=== PATIENT | male | born 1995 | race Caucasian/White ===

== ENCOUNTER 2020-10-09 15:28 | Outpatient (REF) | payer OTHER, SELFPAY ==
[2020-10-09 17:45] LABS: MANUAL DIFF FLAG NO
[2020-10-09 17:48] LABS: Basophils Percent Auto 0.4 % (0-2); Eosinophils Absolute Auto 0.2 X10*3/uL (0.0-0.4); Eosinophils Percent Auto 2.7 % (0-4); Hematocrit 44.5 % (42-52); Hemoglobin 14.9 g/dl (14.0-18.0); Imm Gran Abs Auto 0.01 X10*3/uL (0.00-0.03); Imm Gran Pct Auto 0.1 % (0.0-0.4); Lymphocytes Absolute Auto 1.8 X10*3/uL (1.2-4.9); Lymphocytes Percent Auto 25.1 % (20-40); Mean Corpuscular HGB Conc 33.5 g/dl (31.0-36.0); Mean Corpuscular Hemoglobin 28.9 pg (27.0-33.0); Mean Corpuscular Volume 86.2 fL (80-98); Mean Platelet Volume 11.6 fL (9.4-12.4); Monocytes Absolute Auto 0.7 X10*3/uL (0.1-1.2); Monocytes Percent Auto 9.3 % (2-11); Neutrophils Absolute Auto 4.4 X10*3/uL (2.0-8.3); Neutrophils Percent Auto 62.4 % (45-73); Platelet Count 212 X10*3/uL (160-400); Red Blood Count 5.16 X10*6/uL (4.60-5.80); Red Cell Distribution Width 11.6 % (11.0-16.0); White Blood Count 7.1 X10*3/uL (4.8-10.8)
[2020-10-09 18:16] LABS: Alanine Aminotransferase 19 U/L (0-40); Albumin Level 4.3 g/dL (3.5-5.0); Alkaline Phosphatase 89 U/L (39-117); Anion Gap 12 (12-20); Aspartate Amino Transferase 22 U/L (5-37); Bilirubin Total 0.3 mg/dL (0.0-1.0); Blood Urea Nitrogen 14 mg/dL (9-16); C Reactive Protein 0.68 mg/dL (< or = 0.50); Carbon Dioxide 25 mmol/L (22-29); Chloride 104 mmol/L (96-108); Estimated Glomerular Filt Rate > 60; Glucose Random 81 mg/dL (60-115); Iron 74 mcg/dL (45-160); Percent Iron Saturation 27 % (15-50); Potassium 4.4 mmol/L (3.3-5.1); Sodium 137 mmol/L (135-145); Total Iron Binding Capacity 274 mcg/dL (228-428); Total Protein 7.6 g/dL (6.5-8.0); Unsaturated Iron Binding 200 ug/dL
[2020-10-09 18:32] LABS: Erythrocyte Sedimentation Rate 9 MM/HR (0-15)
[2020-10-09 18:35] LABS: Ferritin 249 ng/mL (20-250)
== END 2020-10-09 15:29 | disposition home or self-care (01) ==
LOC: HO.MANLDS 15:28
PROVIDERS: PCP Internal Medicine; Visit Provider Physician Assistant
DX: K92.1 Melena (principal)
CPT/HCPCS: 36415; 80053; 82728; 83540; 85025; 85652; 86140

== ENCOUNTER 2020-10-16 07:22 | Outpatient (REF) | payer OTHER, SELFPAY ==
[2020-10-16 07:47] LABS: OBS1 POS (NEG); OBS2 NEG (NEG)
[2020-10-16 07:48] LABS: OBS Int Ctl Valid YES; OBS3 POS (NEG)
== END 2020-10-16 07:23 | disposition home or self-care (01) ==
LOC: HO.LNP 07:22
PROVIDERS: Visit Provider Physician Assistant
DX: K92.1 Melena (principal)
CPT/HCPCS: 82270

== ENCOUNTER 2020-11-18 09:59 | Day surgery (SDC) | payer OTHER, SELFPAY ==
--- NOTE | 2020-11-17 09:52 | P.CONAN_ITS ---
Documented by User: Lena Bustos 11/17/20 09:53 HPI - Anesthesia Eval Consult details Narrative: 25yo M for Colonoscopy [facility] Past Medical History Medical History Sleep apnea Social History Social History Smoking Status: Never smoker Use of substances other than those prescribed or required for medical reasons: No Have you been hit, kicked, punched, or otherwise hurt by someone within the past year? If so, by whom?: No Advance Directives: No Advance Directives Information Provided: Yes Advance Directives on File: No Meds Allergies Allergy/AdvReac Type Severity Reaction Status Date / Time No Known Allergies Allergy Verified 11/17/20 09:01 Exam Exam Date and Time: November 17, 2020 0952 Pertinent Lab Results Pertinent Lab Results: Laboratory Tests 10/09/20 10/09/20 15:35 15:35 WBC 7.1 Hgb 14.9 Hct 44.5 Plt Count 212 Sodium 137 Potassium 4.4 Chloride 104 Carbon Dioxide 25 BUN 14 Creatinine 0.79 Assessment and Plan Assessment Anesthesia Assessment: Chart Reviewed Documented by User: Nicole Melissa 11/18/20 11:42 [facility] Past Medical History Medical History Sleep apnea Social History Social History Smoking Status: Never smoker Use of substances other than those prescribed or required for medical reasons: No Have you been hit, kicked, punched, or otherwise hurt by someone within the past year? If so, by whom?: No Advance Directives: No Advance Directives Information Provided: Yes Advance Directives on File: No Meds Allergies Allergy/AdvReac Type Severity Reaction Status Date / Time No Known Allergies Allergy Verified 11/17/20 09:01 Exam Airway Mallampati Class: II TM Dist: >3cm Neck ROM: Full Assessment and Plan Assessment Anesthesia Assessment: Anesthesia Plan Discussed and Chart Reviewed Final Anesthetic Review NPO: Yes ASA Class: II Final Preanesthetic Review: No Changes in Pt Med Stat, Meds/Allgs Chart Reviewed, Consent Obtained/Reviewed and Anes Risks/Benef Reviewed Patient Risk: Low Procedure Risk: Low Assessment/Block/Sedation in SS: Assess/Block/Sedation-SS Anesthetic Plan Anesthetic Plan: MAC: Disposition: Standard PACU
[2020-11-18 09:59] VITALS: BMI 38.2
[2020-11-18 10:08] VITALS: BP 151/84; PULSE 104; RESP 20; TEMP 36.7; O2SAT 94
[2020-11-18 12:23] VITALS: BP 126/78; PULSE 89; RESP 16; TEMP 37.1; O2SAT 99
--- NOTE | 2020-11-18 12:27 | PM.OP ---
Brief Operative Note Date of Service: 11/18/20 Pre-op diagnosis: Rectal bleeding Post-op diagnosis: other (Colon polyps) Procedure: Colonoscopy to cecum and TI with biopsy and removal of colon polyp(Transverse colon), and snare polypectomy(at 30cm) with placement of 2 Resolution clips and marking with submucosal ink. Surgeon: Rolando Johnson Anesthesia: MAC Estimated blood loss (mL): 4.0 Pathology: other (A. Transverse colon polyp B. Polyp at 30cm) Condition: stable Disposition: PACU
[2020-11-18 12:38] VITALS: BP 143/96; PULSE 86; RESP 16; TEMP 37.1; O2SAT 98
--- NOTE | 2020-11-18 13:02 | OP_ITS ---
SURGEON: Rolando Johnson MD INDICATIONS: The patient presents for evaluation of persistent hematochezia and heme-positive stool. Full consent has been obtained from him for this, including risks of bleeding and perforation. PREOPERATIVE DIAGNOSIS: Rectal bleeding. POSTOPERATIVE DIAGNOSIS: PROCEDURE PERFORMED: Colonoscopy to the cecum and terminal ileum with biopsy and removal of polyp, snare polypectomy, placement of resolution clips x2 on the polypectomy site at 30 cm, and marking with submucosal ink at the polypectomy site at 30 cm. ESTIMATED BLOOD LOSS: COMPLICATIONS: ANESTHESIA: Monitored anesthesia care. ASSISTANTS: SPECIMENS: POSTOPERATIVE DIAGNOSES: Rectal bleeding, colon polyps. DESCRIPTION OF PROCEDURE: The patient was placed in the left lateral decubitus position. The digital rectal exam revealed no abnormalities. The [employer] video pediatric colonoscope was entered into the rectum and advanced easily to the cecum. Once in the cecum, I did identify normal-appearing cecal pouch with appendiceal orifice and a normal-appearing ileocecal valve. The terminal ileum was cannulated and appeared normal. Scope was withdrawn back in the colon. The entire cecum and ileocecal valve appeared normal. The scope was then slowly withdrawn assessing all mucosal surfaces carefully. Preparation was excellent. In the transverse colon, was a flat, but slightly raised, approximately 4 mm polyp, which was biopsied and completely removed with cold biopsy forceps. At 30 cm, was a large approximately 1.8 to 2.0 cm polyp on a long and thick stalk. It appeared to be grossly adenomatous with some associated inflammation and friability as well. Given the length and size of the stalk, I opted to place a single clip at the very base of the stalk prior to the polypectomy. This led to good congestion and development of a dusky color in the stalk above the clip. I then used a snare to remove the polyp and the stalk above the clip. There was no sign of any bleeding nor any residual polyp tissue. The polyp was then retrieved with the retrieval net. The scope was readvanced back to the polypectomy site. There was no bleeding. I then placed a submucosal ink lanie just proximal to the polypectomy site and placed 2 ink armstrong distal and adjacent to the polypectomy site as well. There was still a small amount of stalk above the previously placed clip and I placed a single resolution clip on that area as well. The area was observed and irrigated and there was no bleeding. The colon distal to the polypectomy site, including the rectum appeared normal. The scope was retroflexed visualizing normal distal rectal mucosa. There were no appreciable hemorrhoids. The scope was straightened out and withdrawn from the patient. He tolerated the procedure well and was returned to the recovery area in stable condition. IMPRESSION: Colon polyps. PLAN: The results of the pathology will be checked. Hopefully, there is no sign of any malignancy in the larger colon polyp, I would then recommend a repeat colonoscopy within 1 year. He was advised to stay off all aspirin and NSAIDs for at least 1 week. He will be seen in followup to review this as well. This has been discussed with his family. MD CAIN Monterroso/DMITRI / [id number]
== END 2020-11-18 13:08 | disposition home or self-care (01) ==
PROVIDERS: PCP Internal Medicine; Visit Provider Internal Medicine
PROC: 0DJD8ZZ Inspection of Lower Intestinal Tract, Via Natural or Artificial Opening Endoscopic (ICD-10-PCS; CPT 45378; principal; 2020-11-18 11:00)
DX: K62.5 Hemorrhage of anus and rectum (principal); R19.5 Other fecal abnormalities; D12.3 Benign neoplasm of transverse colon; D12.5 Benign neoplasm of sigmoid colon; G47.33 Obstructive sleep apnea (adult) (pediatric); Z99.89 Dependence on other enabling machines and devices
CPT/HCPCS: 45385; 45380; 45381; 88305; J3010

== ENCOUNTER 2021-03-09 16:13 | Outpatient (REF) | payer OTHER, SELFPAY ==
--- NOTE | ~2021-03-09 | XR_ITS ---
EXAMINATION: XR CHEST CLINICAL INFORMATION: Chest pain COMPARISON: None TECHNIQUE: 2 views of the chest were obtained. FINDINGS: No significant abnormality is noted involving the heart, lungs, mediastinum, bony thorax or soft tissues. XR/XR chest 2V IMPRESSION: Unremarkable examination.
== END 2021-03-09 16:14 | disposition home or self-care (01) ==
LOC: HO.XRAY 16:13
PROVIDERS: PCP Internal Medicine; Visit Provider Physician Assistant
DX: R07.89 Other chest pain (principal)
CPT/HCPCS: 71046

== ENCOUNTER → 2021-04-15 10:31 | Outpatient (REF) | payer OTHER, SELFPAY ==
--- NOTE | 2021-04-15 10:33 | CA_ITS ---
Acquisition Time: 2021-04-15 10:40:32 Total Exercise Time: 00:05:00 Test Indications: Chest Pain Medications: PROPRANOLOL Protocol: KIKO Max HR: 176 BPM 89% of Pred: 196 BPM Max BP: 160/080 mmHG Max Work Load: 7.0 METS Exercise sress test with exercise 5 min of Kiko protocol, with request to stop due to leg fatigue and mild to mod sob, No chest discomfort, without arrythmia, with normotensive and brisk chronotropic response to exercise, without EKG changes meeting criteria for ischemia. Test reviewed with Dr Yeh. Referred By: Kim Allen Overread By: ELLIOT PARK
== END ==
LOC: HO.CARD 10:31
PROVIDERS: PCP Physician Assistant; Visit Provider Physician Assistant
DX: R07.89 Other chest pain (principal)
CPT/HCPCS: 93017

== ENCOUNTER → 2021-05-11 08:28 | Outpatient (REF) | payer OTHER, SELFPAY ==
--- NOTE | 2021-05-11 08:30 | CA_ITS ---
Transthoracic Echocardiogram Patient (Last, First, Middle): Pipe Manuel G Gender: Male Date of : 1995 Age: 25 Procedure Date: 05/11/2021 Procedure Type: Transthoracic Echocardiogram Location: OP Height: 172.72 cm Weight: 136.08 kg BSA: 2.43 m2 Heart Rate: bpm BP: 130 / 80 mmHg Tile Ditcher: Referring MD: Kim NASSAR Symptoms: ATYPICAL CHEST PAIN R07.89 Study Quality: Fair ECG Rhythm: Sinus Conclusions: - The left ventricular systolic function is normal. The visually estimated ejection fraction is between 60-65%. - There is mildly increased left ventricular wall thickness. - No obvious valvular pathology seen on this study. Findings Left Ventricle Normal left ventricular cavity size. There is mildly increased left ventricular wall thickness. The left ventricular systolic function is normal. The visually estimated ejection fraction is between 60-65%. There is no evidence of regional wall motion abnormalities. Diastolic function is normal for age. Right Ventricle Normal right ventricular cavity size and systolic function. Atria Both atria are normal in size. Aortic Valve There is a normal trileaflet aortic valve. There is no aortic valve stenosis. There is no aortic valve regurgitation. Mitral Valve The mitral valve appears normal. There is no mitral valve regurgitation. There is no mitral valve stenosis. Pulmonic Valve The pulmonic valve was not well visualized. Tricuspid Valve Normal tricuspid valve structure. There is trace tricuspid valve regurgitation. The pulmonary artery systolic pressure is normal. Great Vessels The asc aorta is normal in size. Venous The inferior vena cava is normal in size and collapses greater than 50% with inspiration. Pericardium/Pleural There is no evidence of pericardial effusion. Prior Study Comparison No prior study available for comparison. Recommendations, Care & Conclusions No obvious valvular pathology seen on this study. Measurements 2D Linear Measurements IVSd: 1.21 0.6-0.9/0.6-1.0 cm LVIDd: 4.62 3.9-5.3/4.2-5.9 cm LVIDd Index: 1.90 2.4-3.2/2.2-3.1 cm/m2 LVIDs: 2.84 2.0-3.6 cm LVPWd: 1.24 0.7-1.1 cm Ao Root: 3.10 2.1-3.5 cm LA Diam: 4.10 2.7-3.8/3.0-4.0 cm LAIDs Index: 1.69 1.5-2.3 cm/m2 LV Mass: 264.97 67-162/88-224 g LV Mass Index: 109.04 43-95/49-115 g/m2 LVOT Diam: 2.30 3.0+(-)1.3 cm Mitral Valve MV Pk E: 0.82 MV PK A: 0.67 MV Decel Time: 131.00 E/A: 1.20 E'Lateral: 12.50 E'Medial: 10.30 E/E' Med: 7.90 E/E' Lat: 6.50 PHT: 38.00 MVA PHT: 5.79 Decel Lipscomb: 6.23 Aortic Valve AoV Pk Amando: 1.17 AoV Mn Amando: 0.76 AoV VTI: 0.24 AoV Pk Grad: 5.00 Aov Mn Grad: 3.00 JERROD Cont.VTI: 2.50 LVOT LVOT Pk Amando: 0.71 LVOT Mn Amando: 0.51 LVOT VTI: 0.15 LVOT Pk Grad: 2.00 LVOT Mn Grad: 1.00 LVOT Diam: 2.30 LVOT Area: 4.15 Diastolic Function MV Pk E: 0.82 MV Pk A: 0.67 E/A: 1.20 E'Medial: 10.30 E/E' Med: 7.90 E' Laterial: 12.50 E/E' Lat: 6.50 Right Ventricle TAPSE (mm): 25.00 Tricuspid Valve TR Pk Amando: 2.40 TR Pk Grad: 23.00 Great Vessels Aorta Ao Root-2D: 3.10 2.0-3.7 cm Ao Asc: 3.10 2.1-3.4 cm Pulmonary Valve PV Pk Amando: 1.07 Peak PV Grad: 5.00 Updated in Other Vendor System with Status of Final Anjel Soto MD electronically signed on 05/11/2021 12:02:21 PM with status of Final
== END ==
LOC: HO.CARD 08:28
PROVIDERS: Visit Provider Physician Assistant
DX: R07.89 Other chest pain (principal)
CPT/HCPCS: 93306

== ENCOUNTER 2022-02-23 07:18 | Day surgery (SDC) | payer OTHER, SELFPAY ==
[2022-02-16 14:15] VITALS: BMI 44.1
--- NOTE | 2022-02-22 08:30 | HO.ANESPROP2 ---
Documented by User: Lena Bustos NP 02/22/22 08:31 HPI - Anesthesia Eval Consult details Narrative: 26yo M for Colonoscopy [facility] Past Medical History Medical History Sleep apnea Surgical History Surgical History H/O colonoscopy Social History Social History Patient Tobacco Use Status: Never used Tobacco Use of substances other than those prescribed or required for medical reasons: No Are you DNR?: No Advance Directives: No Advance Directives Information Provided: Yes (brochure mailed) Advance Directives on File: No Recently lost weight without trying: No Eating poorly because of decreased appetite: No Nutrition Risks: No Nutritional Risk Meds Allergies Allergy/AdvReac Type Severity Reaction Status Date / Time No Known Allergies Allergy Verified 11/17/20 09:01 Home Medications Medication Instructions Recorded Confirmed Last Taken Type No Known Home Meds 02/16/22 02/16/22 Unknown History Exam Exam Date and Time: February 22, 2022 0830 Height,Weight and Vital Signs: Height 5 ft 8 in Weight 131.542 kg Narrative Narrative: ECHO 05/2021 Conclusions: - The left ventricular systolic function is normal.? The visually estimated ejection fraction is between 60-65%. ? - There is mildly increased left ventricular wall thickness. ? ? - No obvious valvular pathology seen on this study.? ? ? Exercise Stress 04/2021 Protocol: BARTOLO ? Max HR: 176 BPM? 89% of? Pred: 196 BPM Max BP: 160/080 mmHG Max Work Load: 7.0 METS ? Exercise sress test with exercise 5 min of Bartolo protocol, with request to stop ?due to leg fatigue and mild to mod sob, No chest discomfort, without arrythmia, ?with normotensive and brisk chronotropic response to exercise, without EKG ?changes meeting criteria for ischemia. Test reviewed with Dr Yeh. Assessment and Plan Assessment Anesthesia Assessment: Chart Reviewed Documented by User: Katy Tidwell MD 02/23/22 07:31 [facility] Past Medical History Medical History Sleep apnea Functional capacity: independent ambulation Family History Family history of problems with anesthesia: No Surgical History Surgical History H/O colonoscopy History of Problems with Anesthesia: No Social History Social History Patient Tobacco Use Status: Never used Tobacco Use of substances other than those prescribed or required for medical reasons: No Are you DNR?: No Advance Directives: No Advance Directives Information Provided: Yes (brochure mailed) Advance Directives on File: No Recently lost weight without trying: No Eating poorly because of decreased appetite: No Nutrition Risks: No Nutritional Risk Meds Allergies Allergy/AdvReac Type Severity Reaction Status Date / Time No Known Allergies Allergy Verified 11/17/20 09:01 Home Medications Medication Instructions Recorded Confirmed Last Taken Type No Known Home Meds 02/16/22 02/16/22 Unknown History Exam Airway Mallampati Class: II TM Dist: >3cm Neck ROM: Full Heart: RRR Lungs: CTA Assessment and Plan Final Anesthetic Review Family History of Problems with Anesthesia: No History of Problems with Anesthesia: No ASA Class: II Final Preanesthetic Review: No Changes in Pt Med Stat, Meds/Allgs Chart Reviewed, Consent Obtained/Reviewed and Anes Risks/Benef Reviewed Patient Risk: Low Procedure Risk: Low Anesthetic Plan Anesthetic Plan: MAC: Disposition: Standard PACU
[2022-02-23 07:24] VITALS: BMI 44.1
[2022-02-23 07:34] VITALS: BP 134/78; PULSE 88; RESP 16; TEMP 36.3; O2SAT 100
[2022-02-23] MEDS: Lactated Ringers 1,000 ML 100 ML IVCONT (07:44)
[2022-02-23 09:19] VITALS: BP 118/74; PULSE 91; RESP 16; TEMP 36.6; O2SAT 98
--- NOTE | 2022-02-23 09:20 | P.BOP_ITS ---
Brief Operative Note Date of Service: 02/23/22 Pre-op diagnosis: Screening Post-op diagnosis: other (Polyp) Procedure: Colonoscopy to the cecum and TI with cold snare polypectomy Surgeon: Rolando Johnson Anesthesia: MAC Was an Stone Carriage Operator used for this Procedure?: No Estimated blood loss (mL): 2.0 Pathology: other (A. Polyp at 20cm) Condition: stable Disposition: PACU
[2022-02-23 09:34] VITALS: BP 130/85; PULSE 83; RESP 18; TEMP 37.2; O2SAT 98
--- NOTE | 2022-02-23 11:35 | HO.POSTANES ---
Post Anesthesia Evaluation Post Anesthesia Evaluation Vital Signs: Vital Signs Temp Pulse Resp BP Pulse Ox O2 Del Method 02/23/22 09:34 98.9 F 83 18 130/85 98 Room Air 02/23/22 09:19 97.8 F 91 16 118/74 98 Room Air 02/23/22 07:34 97.3 F 88 16 134/78 100 Room Air Anesthesia: Monitored Mental Status: Awake Pain Control: Satisfactory Nausea/Vomiting: None Hydration: Adequate Anesthesia-Related Issues: No Anes. Related Issues
--- NOTE | 2022-02-23 14:29 | OP_ITS ---
SURGEON: Rolando Johnson MD INDICATIONS: The patient presents for evaluation of personal history of tubular adenoma of the colon and colorectal cancer screening. Full consent has been obtained from him for this, including risks of bleeding and perforation. PREOPERATIVE DIAGNOSIS: POSTOPERATIVE DIAGNOSIS: PROCEDURE PERFORMED: Colonoscopy to cecum and terminal ileum with cold snare polypectomy. ESTIMATED BLOOD LOSS: COMPLICATIONS: ANESTHESIA: Monitored anesthesia care. ASSISTANTS: SPECIMENS: PREOPERATIVE DIAGNOSES: Colorectal cancer screening and personal history of tubular adenoma of the colon. POSTOPERATIVE DIAGNOSES: Colorectal cancer screening and personal history of tubular adenoma of the colon, small colon polyp, small internal hemorrhoids. DESCRIPTION OF PROCEDURE: The patient was placed in the left lateral decubitus position. The digital rectal exam revealed no abnormalities. The [employer] video pediatric colonoscope was entered into the rectum and advanced easily to the cecum. Once in the cecum, I did identify normal-appearing cecal pouch with appendiceal orifice and a normal-appearing ileocecal valve. The terminal ileum was cannulated and appeared normal. The scope was withdrawn back from the colon. The entire cecum and ileocecal valve appeared normal. The scope was slowly withdrawn assessing all mucosal surfaces carefully. Preparation was excellent. At 20 cm was an approximately 5 or 6 mm flat polyp, which was removed by cold snare polypectomy. A specimen was recovered, although was very tiny and we were not exactly sure if it was tissue, but it was sent to the lab. I did not visualize any other polyps. At 30 cm was evidence of previous ink markings. In the rectum, scope was retroflexed visualizing small internal hemorrhoids, but no other pathology. The rectal mucosa appeared normal. The scope was straightened and withdrawn from the patient. He tolerated the procedure well and was returned to recovery area in stable condition. IMPRESSION: 1. Small colon polyp, status post cold snare polypectomy. 2. Small internal hemorrhoids. PLAN: The results of the biopsy will be checked. I would recommend a repeat colonoscopy in 2 years for further screening. He will otherwise see me on a p.r.n. basis. This has been discussed with his mother. MD CAIN Monterroso/DMITRI / [id number]
== END 2022-02-23 10:10 | disposition home or self-care (01) ==
PROVIDERS: PCP Internal Medicine; Visit Provider Internal Medicine
PROC: 0DJD8ZZ Inspection of Lower Intestinal Tract, Via Natural or Artificial Opening Endoscopic (ICD-10-PCS; CPT 45378; principal; 2022-02-23 08:30)
DX: Z12.11 Encounter for screening for malignant neoplasm of colon (principal); Z86.010 Personal history of colon polyps; K63.5 Polyp of colon; K64.8 Other hemorrhoids; G47.33 Obstructive sleep apnea (adult) (pediatric); Z99.89 Dependence on other enabling machines and devices
CPT/HCPCS: 45385; 88305

== ENCOUNTER 2024-06-03 06:09 | Outpatient (REF) | payer OTHER, SELFPAY ==
[2024-06-03 10:13] LABS: MANUAL DIFF FLAG NO
[2024-06-03 10:32] LABS: Basophils Percent Auto 0.4 % (0-2); Eosinophils Absolute Auto 0.2 X10*3/uL (0.0-0.4); Hematocrit 44.9 % (42.0-52.0); Hemoglobin 14.9 g/dl (14.0-18.0); Imm Gran Abs Auto 0.01 X10*3/uL (0.00-0.03); Imm Gran Pct Auto 0.2 % (0.0-0.4); Lymphocytes Absolute Auto 1.3 X10*3/uL (1.2-4.9); Mean Corpuscular HGB Conc 33.2 g/dl (31.0-36.0); Mean Corpuscular Hemoglobin 29.6 pg (27.0-33.0); Mean Corpuscular Volume 89.3 fL (80.0-98.0); Mean Platelet Volume 11.7 fL (9.4-12.4); Monocytes Absolute Auto 0.6 X10*3/uL (0.1-1.2); Monocytes Percent Auto 12.9 % (2-11); Neutrophils Absolute Auto 2.9 x10*3/uL (2.0-8.3); Neutrophils Percent Auto 57.5 % (45-73); Platelet Count 186 X10*3/uL (160-400); Red Blood Count 5.03 X10*6/uL (4.60-5.80); Red Cell Distribution Width 12.6 % (11.0-16.0)
[2024-06-03 10:51] LABS: Alanine Aminotransferase 13 U/L (0-40); Albumin Level 4.2 g/dL (3.5-5.0); Alkaline Phosphatase 61 U/L (39-117); Anion Gap 9 (12-20); Aspartate Amino Transferase 16 U/L (5-37); Bilirubin Total 0.4 mg/dL (0.0-1.0); Blood Urea Nitrogen 16 mg/dL (9-16); Carbon Dioxide 27 mmol/L (22-29); Chloride 107 mmol/L (96-108); Cholesterol 155 mg/dL (<200); Estimated Glomerular Filt Rate > 60; Glucose Random 96 mg/dL (60-115); HDL Cholesterol 51 mg/dL (>40); LDL Cholesterol Calculated 85 mg/dL (<100); Sodium 139 mmol/L (135-145); Triglycerides 99 mg/dL (<150)
[2024-06-03 10:56] LABS: Estimated Average Glucose 97 mg/dL; Total Hemoglobin (HGBA1C) 3691.7812 umol/L
== END 2024-06-03 06:10 | disposition home or self-care (01) ==
LOC: HO.HMGCLDS 06:09
PROVIDERS: PCP Physician Assistant; Visit Provider Physician Assistant
DX: Z00.00 Encounter for general adult medical examination without abnormal findings (principal)
CPT/HCPCS: 36415; 80053; 80061; 83036; 85025

== ENCOUNTER 2024-07-24 10:20 | Day surgery (SDC) | payer OTHER, SELFPAY ==
[2024-07-22 13:43] VITALS: BMI 33.4
--- NOTE | 2024-07-23 08:53 | P.CONAN_ITS ---
Documented by User: Lena Bustos NP 07/23/24 08:53 HPI - Anesthesia Eval Consult details Narrative: 28yo M for Colonoscopy [facility] Past Medical History Medical History Anxiety Sleep apnea Family History Family history of problems with anesthesia: No Surgical History Surgical History H/O colonoscopy History of Problems with Anesthesia: No Social History Social History Are you a primary neonatal critical care nurse to a significant other at home: No Do you presently have visiting nurse or other home services: No Patient Tobacco Use Status: Never used Tobacco Use of substances other than those prescribed or required for medical reasons: Yes Substance Use Frequency: Occasionally Have you been hit, kicked, punched, or otherwise hurt by someone within the past year? If so, by whom?: No Advance Directives: No Advance Directives Information Provided: Yes Recently lost weight without trying: No Nutrition Risks: No Nutritional Risk Meds Allergies Allergy/AdvReac Type Severity Reaction Status Date / Time No Known Allergies Allergy Verified 11/17/20 09:01 Home Medications ?Medication ?Instructions ?Recorded ?Confirmed ?Last Taken ?Type bupropion HCl 150 mg 24 hr tablet, 150 mg PO DAILY 07/22/24 07/22/24 Unknown History extended release Exam Height,Weight and Vital Signs: Height 5 ft 8 in Weight 99.79 kg Assessment and Plan Assessment Anesthesia Assessment: Chart Reviewed Final Anesthetic Review Family History of Problems with Anesthesia: No History of Problems with Anesthesia: No Documented by User: Kaden Tidwell MD 07/24/24 10:49 [facility] Past Medical History Medical History Anxiety Sleep apnea Surgical History Surgical History H/O colonoscopy Social History Social History Are you a primary neonatal critical care nurse to a significant other at home: No Do you presently have visiting nurse or other home services: No Patient Tobacco Use Status: Never used Tobacco Use of substances other than those prescribed or required for medical reasons: Yes Substance Use Frequency: Occasionally Have you been hit, kicked, punched, or otherwise hurt by someone within the past year? If so, by whom?: No Advance Directives: No Advance Directives Information Provided: Yes Recently lost weight without trying: No Nutrition Risks: No Nutritional Risk Meds Allergies Allergy/AdvReac Type Severity Reaction Status Date / Time No Known Allergies Allergy Verified 11/17/20 09:01 Home Medications ?Medication ?Instructions ?Recorded ?Confirmed ?Last Taken ?Type bupropion HCl 150 mg 24 hr tablet, 150 mg PO DAILY 07/22/24 07/22/24 Unknown History extended release Exam Airway Mallampati Class: II TM Dist: >3cm Neck ROM: Full Assessment and Plan Final Anesthetic Review NPO: Yes ASA Class: II Final Preanesthetic Review: No Changes in Pt Med Stat, Meds/Allgs Chart Reviewed, Consent Obtained/Reviewed and Anes Risks/Benef Reviewed Patient Risk: Low Procedure Risk: Low Anesthetic Plan Anesthetic Plan: TIVA Disposition: Standard PACU
[2024-07-24 10:29] VITALS: BMI 32.0
[2024-07-24 10:34] VITALS: BMI 32.0
[2024-07-24 10:57] VITALS: BP 141/85; PULSE 86; RESP 16; TEMP 36.6; O2SAT 97
[2024-07-24] MEDS: Lactated Ringers 1,000 ML 100 ML IVCONT (11:07)
[2024-07-24 12:38] VITALS: BP 111/76; PULSE 97; RESP 16; TEMP 37; O2SAT 98
--- NOTE | 2024-07-24 12:41 | PM.OP ---
Brief Operative Note Date of Service: 07/24/24 Pre-op diagnosis: Screening, history of tubular adenomas Post-op diagnosis: other (Internal hemorrhoids) Procedure: Colonoscopy to the cecum and TI Surgeon: Rolando Johnson MD Anesthesia: MAC Was an Vulcanizer Rubber Plate used for this Procedure?: No Estimated blood loss (mL): 0 Pathology: none sent Condition: stable Disposition: PACU
[2024-07-24 12:53] VITALS: BP 127/82; PULSE 82; RESP 16; TEMP 36.7; O2SAT 98
--- NOTE | 2024-07-24 12:59 | OP_ITS ---
DATE OF SERVICE: 07/24/2024 SURGEON: Rolando Johnson MD INDICATIONS: The patient presents for colorectal cancer screening and personal history of tubular adenoma of the colon. Full consent obtained from him for this, including risks of bleeding and perforation. PREOPERATIVE DIAGNOSIS: Colorectal cancer screening, personal history of tubular adenoma of the colon. POSTOPERATIVE DIAGNOSIS: Colorectal cancer screening, personal history of tubular adenoma of the colon, internal hemorrhoids. PROCEDURE PERFORMED: Colonoscopy to cecum and terminal ileum. ESTIMATED BLOOD LOSS: COMPLICATIONS: ANESTHESIA: Monitored anesthesia care. ASSISTANTS: SPECIMENS: DESCRIPTION OF PROCEDURE: The patient was placed in the left lateral decubitus position. The digital rectal exam revealed no abnormalities. The Olympus video pediatric colonoscope was entered into the rectum advanced easily to the cecum. Once in the cecum, I did identify normal-appearing cecal pouch with appendiceal orifice and a normal-appearing ileocecal valve. The terminal ileum was cannulated and appeared normal. The scope was withdrawn back in the colon. The entire cecum and ileocecal valve appeared normal. The scope was slowly withdrawn assessing all mucosal surfaces carefully. Preparation was excellent. I did not visualize any sign of polyps, colitis, nor angiodysplasias. The previously placed submucosal ink armstrong were noted at 20 cm. Once in the rectum, scope was retroflexed visualizing internal hemorrhoids, but no other pathology. The rectal mucosa appeared normal. The scope was straightened and withdrawn from the patient. He tolerated the procedure well and was returned to the recovery area in stable condition. IMPRESSION: Internal hemorrhoids, otherwise normal colonoscopy. PLAN: Given his previous history, I would recommend a followup coloscopy within 3 years for further screening and surveillance. He will otherwise see me on a p.r.n. basis. This has been discussed with his mother. MD CAIN Monterroso/DANISHL / [id number]
== END 2024-07-24 13:20 | disposition home or self-care (01) ==
PROVIDERS: PCP Physician Assistant; Visit Provider Internal Medicine
PROC: 0DJD8ZZ Inspection of Lower Intestinal Tract, Via Natural or Artificial Opening Endoscopic (ICD-10-PCS; CPT 45378; principal; 2024-07-24 11:30)
DX: Z12.11 Encounter for screening for malignant neoplasm of colon (principal); Z86.0101 Personal history of adenomatous and serrated colon polyps; K64.8 Other hemorrhoids; G47.33 Obstructive sleep apnea (adult) (pediatric); Z79.899 Other long term (current) drug therapy
CPT/HCPCS: 45378; J2003; J2704